=== PATIENT | female | born 1990 | race African-American/Black ===

== ENCOUNTER 2016-11-14 07:28 | Emergency (ER) | payer OTHER ==
[~2016-11-14] VITALS: Ht 157.5 cm; Wt 95.7 kg
[~2016-11-14 07:28] MED LIST: AMLODIPINE10 MG PO; AMOXIL500 MG PO; BENTYL20 MG PO; IBUPROFEN800 MG PO; NORVASC 2.5 MG2.5 MG PO; NORVASC10 M1 PO; PEN-VK500 MG PO; ZOFRAN4 M1 PO
[2016-11-14 07:34] VITALS: BP 195/110
--- NOTE | 2016-11-14 07:55 | ED THROAT/DENTAL COMPLAINT ---
History of Present Illness General Chief Complaint: Sore Throat, Dental Pain Stated Complaint: SORE THROAT X 2 DAYS Source: patient, old records Exam Limitations: no limitations Vital Signs & Intake/Output Vital Signs & Intake/Output Vital Signs Date Time Temp Pulse Resp B/P Pulse O2 O2 Flow FiO2 Ox Delivery Rate 11/14 0734 98.0 113 20 195/110 99 Room Air Allergies Coded Allergies: NO KNOWN ALLERGIES (11/08/15) Reconcile Medications Amlodipine Besylate (Norvasc) 10 MG TABLET 1 TAB PO DAILY APOLLO BLOOD PRESSURE Amoxicillin/Potassium Clav (Augmentin 875-125 Tablet) 875 MG-125 MG TABLET 1 TAB PO BID strep Triage Note: PT TO ED C/O ? STREP X THE PAST 2 DAYS. UNSURE IF FEVERS AT HOME. AFEBRILE. PT WORKS AT A [employer]. Triage Nurses Notes Reviewed? 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 She denies cough shortness of breath she is unsure fever or chills. No abdominal pain nausea vomiting diarrhea. She denies chest pain rashes to her skin near pain congestion she has not taken anything for her symptoms are still until today. (ISAAC EARL) Past History Travel History Traveled to [place] past 21 day No Medical History Any Pertinent Medical History? 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 No (ISAAC EARL) Review of Systems Review of Systems Constitutional: Reports: see HPI. All Other Systems: Reviewed and Negative Comments Review of systems: See HPI, All other systems negative. Constitutional, no chills no fever, no malaise HEENT: No visual changes sore throat no congestion, no ear pain Cardiovascular: No chest pain , no palpitation , no orthopnea no ankle swelling Skin, no rashes, no change in skin Respiratory: No dyspnea no cough no sputum GI: No nausea no vomiting, no diarrhea, no bloating/constipation : No dysuria No hematuria Muscle skeletal: No joint pain, no joint swelling, no back pain, no neck pain, Neurologic: No numbnessno headache Psych: No stress Heme/endocrine: No bruising no bleeding n Immunology: No lymphadenopathy (ISAAC EARL) Physical Exam Physical Exam General Appearance: well developed/nourished, no apparent distress, alert, awake , comfortable Mouth/Throat: normal mouth inspection, tonsillar exudate Comments: Well-developed well-nourished patient in no apparent distress. Head/Face: Atraumatic, no maxillary/frontal sinus tenderness, no facial swelling Eyes: PERRL, EOMI, no conjunctival injection Ear:External auditory canal and Tympanic membranes clear, no erythema, no FB. Nose: atraumatic.Normal inspection: No bleeding, no septal hematoma Throat: Moist mucous membranes. (+) pharyngeal erythema/exudate seen. No stridor /drooling or assymetry. No swelling or edema. No trismus Neck: Supple, no lymphadenopathy, FROM Back: FROM, Nontender Cardiovascular: Regular rate and rhythms no murmurs rubs Respiratory: No respiratory distress. Patient speaking in full complete sentences. Breath sounds clear to auscultation bilaterally: NO W/R/R Extremities: full range of motion Neuro: Alert and oriented x3 Skin: Warm & dry;No appreciable rash on exposed skin Psych: Mood affect normal, normal memory normal judgment. Core Measures ACS in differential dx? No Severe Sepsis Present: No Septic Shock Present: No (ISAAC EARL) Progress Differential Diagnosis: odontogenic abscess, harsha-tonsillar abscess, stomatitis/ gingivitis, strep pharyngitis, MONO VIRAL SYNDROME Plan of Care: Orders Procedure Date/time Status THROAT CULTURE W/QUICK STREP 11/14 0735 Complete DW PT HER STREP SWAB RESULTS NEED FOR abx, SUPPROTIVE CARE, PT CLINICALLY APPEARS WELL NO TRISMUS, SPEAKING IN FULL SENTENCES, ADVISED F/U WITH PMD IF SX PERSIST, D/W PT HER BP IN TRIAG, PT HAS BEEN COMPLIANT WITH NORVASC, ADVISED FLUIDS, RETURN WITH ANY COCNERNS (ISAAC EARL) Departure Departure Time of Disposition: 801 Disposition: HOME OR SELF CARE Condition: Stable Clinical Impression Primary Impression: Strep pharyngitis Secondary Impressions: HTN (hypertension) Referrals: UNKNOWN Additional Instructions: augmentin as directed. tylenol or motrin for pain,fever or chills. drink plenty of fluids. follow up with your pmd, return with any concerns. this was sent to your pharmacy Departure Forms: Customer Survey General Discharge Information Prescriptions: Current Visit Scripts Amoxicillin/Potassium Clav (Augmentin 875-125 Tablet) 1 TAB PO BID #14 TAB (ISAAC EARL) PA/MECHANICAL SERVICE SPECIALIST Co-Sign Statement Statement: ED Attending supervision documentation- [] I saw and evaluated the patient. I have also reviewed all the pertinent lab results and diagnostic results. I agree with the findings and the plan of care as documented in the PA's/MECHANICAL SERVICE SPECIALIST's documentation. [X] I have reviewed the ED Record and agree with the PA's/MECHANICAL SERVICE SPECIALIST's documentation. [] Additions or exceptions (if any) to the PAs/MECHANICAL SERVICE SPECIALIST's note and plan are summarized below: [] (LORI ESCOBAR,GILBERT)
[2016-11-14] MEDS ORDERED: AUGMENTIN 875-1 EACH PO (08:05)
== END 2016-11-14 08:17 ==
LOC: ERH 07:28
DX: J02.0 Streptococcal pharyngitis (principal); I10 Essential (primary) hypertension

== ENCOUNTER 2017-02-05 23:04 | Emergency (ER) | payer OTHER ==
[~2017-02-05] VITALS: Ht 160 cm; Wt 93.4 kg
[~2017-02-05 23:04] MED LIST changes: +AUGMENTIN 875-1 EACH PO
[2017-02-05 23:08] VITALS: BP 155/105
--- NOTE | 2017-02-05 23:50 | ED INFLUENZA/URI COMPLAINT ---
History of Present Illness General Chief Complaint: General Adult Stated Complaint: " I FEEL ACHY AND HEADACHE" Source: patient Exam Limitations: no limitations Vital Signs & Intake/Output Vital Signs & Intake/Output Vital Signs Date Time Temp Pulse Resp B/P Pulse O2 O2 Flow FiO2 Ox Delivery Rate 02/06 0001 Room Air 02/05 2311 101.2 02/05 2308 101.2 115 18 155/105 99 Room Air ED Intake and Output 02/06 0000 02/05 1200 Intake Total Output Total Balance Patient 206 lb Weight Allergies Coded Allergies: NO KNOWN ALLERGIES (11/08/15) Reconcile Medications Amlodipine Besylate (Norvasc) 10 MG TABLET 1 TAB PO DAILY APOLLO BLOOD PRESSURE Amoxicillin/Potassium Clav (Augmentin 875-125 Tablet) 875 MG-125 MG TABLET 1 TAB PO BID strep Benzonatate (Tessalon Perle) 100 MG CAPSULE 1 CAP PO TID PRN COUGH Oseltamivir Phosphate (Tamiflu) 75 MG CAPSULE 1 CAP PO BID INFLUENZA Triage Note: PT TO ED FOR GENERALIZED BODY ACHES, STUFF NOSE "AND FEELING WIERD" SINCE THIS AM. PT REPORTING SHE HAS NOT TAKEN HER BP MEDS "IN A FEW DAYS BECAUSE I HAD MY PERIOD" Triage Nurses Notes Reviewed? yes Onset: Gradual Duration: constant Timing: recent history Severity: moderate Severity Numbers: 5 : No Patient currently breastfeeds: No HPI: Patient is a 26-year-old female with a past medical history of hypertension WHO present emergency room saying that for the past day she's been complaining of chills tactile fevers body aches muscle aches and dry hacking cough and headache and congestion. 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 Patient has been taking Tylenol with minimal relief of symptoms. Denies any shortness of breath chest pain sore throat or ear pain neck pain neck stiffness. Patient is able tolerate by mouth (ISAAC MAS) Past History Travel History Traveled to [place] past 21 day No Medical History Any Pertinent Medical History? 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 No (ISAAC MAS) Review of Systems Review of Systems Constitutional: Reports: see HPI, chills. EENTM: Reports: no symptoms. Respiratory: Reports: see HPI, cough. Cardiovascular: Reports: no symptoms. GI: Reports: no symptoms. Genitourinary: Reports: no symptoms. Musculoskeletal: Reports: see HPI, joint pain, muscle pain. Skin: Reports: no symptoms. Neurological/Psychological: Reports: headache. Hematologic/Endocrine: Reports: no symptoms. Immunologic/Allergic: Reports: no symptoms. All Other Systems: Reviewed and Negative (ISAAC MAS) Physical Exam Physical Exam General Appearance: no apparent distress, alert, comfortable Ears, Nose, Throat: normal ENT inspection, moist mucous membrane, hearing grossly normal, Tympanic normal, pharynx normal Comments: Well-developed well-nourished person in no acute distress HEENT: Normal EENT exam, extraocular motion intact, no nystagmus. Pupils equally round and reactive to light and accommodation. Nose is atraumatic. External auditory canal and Tympanic membranes clear. Pharynx normal. No swelling or edema. Neck: Supple, no lymphadenopathy, normal range of motion without pain or tenderness Back: Nontender, no CVA tenderness. Cardiovascular: Regular rate and rhythms no murmurs rubs or gallops, normal JVP Respiratory: Chest nontender. No respiratory distress.breath sounds clear to auscultation bilaterally Abdomen: Soft, nontender nondistended, no appreciable organomegaly. Normal bowel sounds. No ascites Extremity: No edema, no calf tenderness to palpation, normal and equal pulses. Neuro: Alert oriented x3, motor sensory normal, Skin: No appreciable rash on exposed skin, skin is warm and dry. Psych: Mood and affect is normal, memory and judgment is normal. Core Measures Severe Sepsis Present: No Septic Shock Present: No (ISAAC MAS) Progress Differential Diagnosis: influenza, meningitis, neutropenia, otitis, pneumonia, pharyngitis, sinusitis Plan of Care: Orders Procedure Date/time Status RAPID VIRAL INFLUENZA A 02/05 2311 Complete Microbiology 02/05 2313 NASOPHARYN: Influenza Virus A & B Rapid Smear - COMP INFLUENZA TYPE B patient currently looks well no apparent distress Patient is able tolerate by mouth Nontoxic appearing Clear lungs auscultation patient has positive influenza B (ISAAC MAS) Initial ED EKG: none (ISAAC MAS) Departure Departure Disposition: HOME OR SELF CARE Condition: Stable Clinical Impression Primary Impression: Influenza B Referrals: PATIENT HAS NO PRIMARY CARE DR (PCP/Family) Additional Instructions: As discussed begin drinking plenty of water for hydration, begin over-the- counter ibuprofen for pain and Tylenol for fevers. Begin [id number] guaifenesin and Mucinex for cough. Begin the prescription of Tessalon Perles for cough and a prescription of Tamiflu for your symptoms. Prescription is waiting at [facility] pharmacy. If no better in 3 days follow-up with her primary care doctor. If symptoms worsen return to emergency room Departure Forms: Customer Survey General Discharge Information Prescriptions: Current Visit Scripts Oseltamivir Phosphate (Tamiflu) 1 CAP PO BID #10 CAP Benzonatate (Tessalon Perle) 1 CAP PO TID PRN COUGH #15 CAP (ISAAC MAS) PA/REPORT MANAGER Co-Sign Statement Statement: ED Attending supervision documentation- [] I saw and evaluated the patient. I have also reviewed all the pertinent lab results and diagnostic results. I agree with the findings and the plan of care as documented in the PA's/REPORT MANAGER's documentation. [x] I have reviewed the ED Record and agree with the PA's/REPORT MANAGER's documentation. [] Additions or exceptions (if any) to the PAs/REPORT MANAGER's note and plan are summarized below: [] (AMILCAR ESCOBAR,ERENDIRA Donahue)
[2017-02-05] MEDS ORDERED: TAMIFLU75 M1 PO (23:54)
[2017-02-05] MEDS ORDERED: TESSALON PERLE100 M1 PO (23:54)
== END 2017-02-06 00:03 ==
LOC: ERH 23:04
DX: J10.1 Influenza due to other identified influenza virus with other respiratory manifestations (principal)
CPT/HCPCS: 87804; 87804-59

== ENCOUNTER 2017-11-21 18:46 | Emergency (ER) | payer OTHER ==
[~2017-11-21] VITALS: Ht 160 cm; Wt 79.4 kg
[~2017-11-21 18:46] MED LIST changes: +AMLODIPINE BESY10 M1 PO; +TAMIFLU75 M1 PO; +TESSALON PERLE100 M1 PO
--- NOTE | 2017-11-21 19:20 | ED GENERAL ADULT ---
History of Present Illness General Chief Complaint: Sore Throat, Dental Pain Stated Complaint: TOOTH PAIN X1 DAY Source: patient Exam Limitations: no limitations Vital Signs & Intake/Output Vital Signs & Intake/Output Vital Signs Date Time Temp Pulse Resp B/P B/P Pulse O2 O2 Flow FiO2 Mean Ox Delivery Rate 11/21 2342 8 158/90 11/21 2304 90 15 170/107 11/21 2259 182/114 11/21 2235 182/114 11/21 2215 215/110 11/21 2211 98.8 100 20 215/118 100 11/21 2122 202/118 11/21 2003 210/80 11/21 1942 97.4 86 18 240/138 11/21 1942 97 Room Air 11/21 1905 97.4 86 18 240/138 96 Room Air ED Intake and Output 11/22 0000 11/21 1200 Intake Total Output Total Balance Patient 175 lb Weight Weight Reported by Patient Measurement Method Allergies Coded Allergies: NO KNOWN ALLERGIES (11/08/15) Reconcile Medications Amlodipine Besylate (Norvasc) 10 MG TABLET 1 TAB PO DAILY HYPERTENSION Triage Note: PT FROM HOME C/O DENTAL PAIN X1 DAY PER PT. PT STATES THAT SHE HAS A LEFT UPPER TOOTH IN THE BACK NEAR HER WISDOM TOOTH THAT IS POSSIBLY INFECTED. PT STATES PAIN HAS BEEN X1 DAY AND PT LAST SELF MEDICATED WITH 650MG TYLENOL PO AROUND 1600 FOR THE PAIN. PAIN 8/10 RADIATES FROM LEFT UPPER JAW TO LEFT HOLINESS CAUSING A NARAYANAN. PT ALSO STATES "I RAN OUT OF MY AMLODIPINE 10MG TODAY" PTS MANUAL BP IN TRIAGE 240/138. ASPHALT MIXING MACHINE OPERATOR NICK AND JOVAN GRAY S INFORMED. PT ASYMPTOMATIC. PT A&OX3, AMBULATED TO [facility] FOR EKG. VSS OTHERWISE. Triage Nurses Notes Reviewed? yes Onset: Gradual Duration: getting worse Timing: single episode today Severity: severe Severity Numbers: 7 : No Patient currently breastfeeds: No HPI: Patient is a 27-year-old female with past medical history of hypertension who presents to emergency room with concerns of a 3 month history of a left upper dental tooth ache and fracture where she states that she has been noncompliant with following up with your surgeon to have the tooth pulled her she states that today the pain has worsened and is concerned of gum swelling and infection. Patient also states that she was recently prescribed amlodipine from [place] emergency room for concerns of high blood pressure where she states that she has been compliant with her medications except for today where she ran out of her medications patient does not have a primary care doctor patient has not taken any medications for symptoms. Patient denies any fever or chills blurred vision chest pain shortness breath or CHEST PAIN and difficulty swallowing difficulty breathing (Mc Cardoza) Past History Travel History Traveled to [place] past 21 day No Medical History Any Pertinent Medical History? 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 No (Mc Cardoza) Review of Systems Review of Systems Constitutional: Reports: no symptoms. EENTM: Reports: see HPI, mouth pain, tooth pain. Respiratory: Reports: no symptoms. Cardiovascular: Reports: no symptoms. GI: Reports: no symptoms. Genitourinary: Reports: no symptoms. Musculoskeletal: Reports: no symptoms. Skin: Reports: no symptoms. Neurological/Psychological: Reports: no symptoms. Denies: headache. Hematologic/Endocrine: Reports: no symptoms. Immunologic/Allergic: Reports: no symptoms. All Other Systems: Reviewed and Negative (Mc Cardoza) Physical Exam Physical Exam General Appearance: no apparent distress, alert, comfortable Head: atraumatic Eyes: Bilateral: normal appearance, PERRL, EOMI. 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 No CVA/TIA Diagnosis: No Sepsis Present: No Sepsis Focused Exam Completed? No (Mc Cardoza) Progress Differential Diagnoses I considered the following diagnoses in my evaluation of the patient: [ Hypertensive urgency or hypertensive emergency hypertension, gum abscess, peritonsillar abscess, LUDWIGS angina dental pain] Plan of Care: Orders Procedure Date/time Status Add-on Test (ER Only) 11/21 2253 Active HUMAN BETA HCG SCREEN 11/21 2199 Complete Telemetry/Cane Flume Chute Operator 11/21 2129 Active TROPONIN LEVEL 11/21 2129 Complete COMPREHENSIVE METABOLIC PANEL 11/21 2129 Complete CBC WITHOUT DIFFERENTIAL 11/21 2129 Complete EKG 11/21 1910 Active Laboratory Tests 11/21/172199: Anion Gap 17 H, Estimated GFR > 60, BUN/Creatinine Ratio 12.5, Glucose 106 H, Calcium 9.4, Total Bilirubin 0.3, AST 24, ALT 28, Alkaline Phosphatase 89, Troponin I < 0.01, Total Protein 8.3 H, Albumin 4.7, Globulin 3.6, Albumin/ Globulin Ratio 1.3, Total Beta HCG NEGATIVE, CBC w Diff NO MAN DIFF REQ, RBC 4.82, MCV 79.3 L, MCH 26.1 L, RDW 14.6 H, MPV 7.7, Gran % 74.4, Lymphocytes % 20.7, Monocytes % 4.3, Eosinophils % 0.1, Basophils % 0.5, Absolute Granulocytes 7.0 H, Absolute Lymphocytes 1.9, Absolute Monocytes 0.4, Absolute Eosinophils 0 , Absolute Basophils 0, PUBS MCHC 32.9 L On examination patient was resting currently at bedside patient does have significantly elevated blood pressure patient was administered her amlodipine EKG was unremarkable concerns of peritonsillar abscess or darshan angina I strongly advised patient to follow-up with [facility] practice to establish a primary care doctor for establishment and for prescription medications of amlodipine and strongly advised patient to follow-up and have the oral surgeon PULL patient's tooth Reevaluated patient in which she had improvement of her pain blood pressure still remains high, After amlodipine with minimal response, patient was then administered IV labetalol with mild improvement however after Vasotec patient has significant improvement of blood pressure. Blood work was unremarkable patient again was strongly advised to follow-up with discharge instructions the plan and She will comply Initial ED EK BPM, NOTED T-WAVE INVERSION UNCHANGED ,V2 (Jack ALDANA,Mc) Departure Departure Disposition: HOME OR SELF CARE Condition: Stable Clinical Impression Primary Impression: Toothache Secondary Impressions: Hypertension Referrals: Patient Has No Primary Care Dr (PCP/Family) Additional Instructions: As discussed please follow-up with [facility] practice this week to establish a doctor as you will receive a phone call for an appointment, please follow-up with your oral surgeon to make appointment for further evaluation and treatment of your dental pain, begin the prescription meloxicam for pain, begin the prescription of Percocet for breakthrough pain relief, begin the prescription clindamycin Prescriptions waiting at [facility]. If symptoms worsen or should develop new concerning symptom return to emergency\\ Begin the prescription of amlodipine for your blood pressure Departure Forms: Customer Survey General Discharge Information Prescriptions: Current Visit Scripts Amlodipine Besylate (Norvasc) 1 TAB PO DAILY #30 TAB (Mc Cardoza) PA/IN HOME TUTOR Co-Sign Statement Statement: ED Attending supervision documentation- [] I saw and evaluated the patient. I have also reviewed all the pertinent lab results and diagnostic results. I agree with the findings and the plan of care as documented in the PA's/IN HOME TUTOR's documentation. [x] I have reviewed the ED Record and agree with the PA's/IN HOME TUTOR's documentation. [] Additions or exceptions (if any) to the PAs/IN HOME TUTOR's note and plan are summarized below: [] (Brandi ESCOBAR,Warren Donahue) Critical Care Note Critical Care Note Critical Care Time: non-applicable (Mc Cardoza)
[2017-11-21] MEDS ORDERED: CLEOCIN HCL300 M1 PO (20:24)
[2017-11-21] MEDS ORDERED: NORVASC10 M1 PO (20:24)
[2017-11-21] MEDS ORDERED: MOBIC15 M1 PO (20:24)
[2017-11-21] MEDS ORDERED: PERCOCET 5-3251 EACH PO (20:24)
[2017-11-21 22:17] LABS: ABSOLUTE BASOPHIL COUNT 0 /CUMM (0.0-0.2); ABSOLUTE EOSINOPHIL COUNT 0 /CUMM (0.0-0.7); ABSOLUTE LYMPH COUNT 1.9 /CUMM (1.2-3.4); ABSOLUTE MONOCYTE COUNT 0.4 /CUMM (0.10-0.60); BASOPHIL % 0.5 % (0.0-2.0); EOSINOPHIL % 0.1 % (0-5); HEMATOCRIT 38.2 % (37-47); MEAN CORPUSCULAR HGB 26.1 PG (27.0-31.0); MEAN CORPUSCULAR HGB CONC 32.9 G/DL (33.0-37.0); MEAN CORPUSCULAR VOLUME 79.3 FL (81.0-99.0); MEAN PLATELET VOLUME 7.7 FL (7.4-10.4); PLATELET COUNT 343 /CUMM (130-400); RBC DISTRIBUTION WIDTH 14.6 % (11.5-14.5); RED BLOOD CELL CT 4.82 /CUMM (4.20-5.40); WHITE BLOOD CELL COUNT 9.4 /CUMM (4.8-10.8)
[2017-11-21 22:18] LABS: GRANULOCYTE % 74.4 % (42.2-75.2)
[2017-11-21 23:42] VITALS: BP 158/90
== END 2017-11-21 23:54 ==
LOC: ERH 18:46
PROVIDERS: Physician Assistant
DX: K08.89 Other specified disorders of teeth and supporting structures (principal); I10 Essential (primary) hypertension
CPT/HCPCS: 93005; 93010; 96374; 96375

== ENCOUNTER 2018-06-27 17:56 | Emergency (ER) | payer OTHER ==
[~2018-06-27 17:56] MED LIST changes: +CLEOCIN HCL300 M1 PO; +IBUPROFEN800 M1 PO; +MOBIC15 M1 PO; +PERCOCET 5-3251 EACH PO
[2018-06-27 18:20] VITALS: BP 146/94
--- NOTE | 2018-06-27 18:21 | ED SKIN/ALLERGY COMPLAINT ---
History of Present Illness General Chief Complaint: Animal/Insect Bite Stated Complaint: GOT BIT BY MOSQUITO, ?ALLERGIC REACTION Source: patient Exam Limitations: no limitations Vital Signs & Intake/Output Vital Signs & Intake/Output Vital Signs Date Time Temp Pulse Resp B/P B/P Pulse O2 O2 Flow FiO2 Mean Ox Delivery Rate 06/27 1820 97.6 76 17 146/94 99 Room Air Allergies Coded Allergies: NO KNOWN ALLERGIES (11/08/15) Reconcile Medications Amlodipine Besylate (Norvasc) 10 MG TABLET 1 TAB PO DAILY HYPERTENSION Cephalexin (Keflex) 500 MG CAPSULE 1 CAP PO TID cellulitis Ibuprofen 800 MG TABLET 1 TAB PO TID fever Oseltamivir Phosphate (Tamiflu) 75 MG CAPSULE 1 CAP PO BID flu Triamcinolone Acetonide 0.1 % CREAM..G. 0.1 % TOP BID RASH [place]riage Note: [place], BELIEVES SHE WAS BIT BY MOSQUITOS ON LEFT ARM. STATES REDNESS AND ITCHING TO SITES INCREASED. Triage Nurses Notes Reviewed? yes Onset: Abrupt Duration: day(s): (few) Possible Factors: insect bite : No Patient currently breastfeeds: No HPI: 28-year-old female comes into the emergency room for further evaluation of redness and swelling to right upper arm. Patient reports that she was stung by some insects the other day. She reports that now she has increased redness and swelling and pain. Denies any fever chills or flulike symptoms. She comes in for further evaluation. (Maverick Christian) Past History Travel History Traveled to [place] past 21 day No Medical History Any Pertinent Medical History? see below for history Neurological: NONE EENT: NONE Cardiovascular: hypertension Respiratory: NONE Gastrointestinal: NONE Hepatic: NONE Renal: NONE Musculoskeletal: NONE Psychiatric: NONE Endocrine: NONE Blood Disorders: NONE Cancer(s): NONE LAST TRIMMER/Reproductive: NONE Surgical History Surgical History: non-contributory Psychosocial History What is your primary language Romanian Tobacco Use: Never used Family History Hx Contributory? No (Maverick Christian) Review of Systems Review of Systems Constitutional: Reports: no symptoms. EENTM: Reports: no symptoms. Respiratory: Reports: no symptoms. Cardiovascular: Reports: no symptoms. GI: Reports: no symptoms. Genitourinary: Reports: no symptoms. Musculoskeletal: Reports: no symptoms. Skin: Reports: see HPI. Neurological/Psychological: Reports: no symptoms. Hematologic/Endocrine: Reports: no symptoms. Immunologic/Allergic: Reports: no symptoms. All Other Systems: Reviewed and Negative (Maverick Christian) Physical Exam Physical Exam General Appearance: well developed/nourished, mild distress Head: atraumatic Eyes: Bilateral: normal appearance. Ears, Nose, Throat: normal ENT inspection, hearing grossly normal Neck: normal inspection Respiratory: no respiratory distress Back: normal inspection Extremities: normal inspection, normal range of motion, no edema Neurologic/Psych: awake, alert, oriented x 3, normal mood/affect Skin: intact, rash Skin Problem Location: upper extremities Skin Problem Character: large red patch to right upper arm, well-demarcated borders, first patches 10 x 7 cm, second patch is 10 x 10 cm, warm to touch, (Maverick Christian) Progress Differential Diagnosis: abscess/cellulitis, allergic reaction, anaphylaxis, contact dermatitis Plan of Care: 06/27/2018 9:05:58 PM Patient was double covered with topical steroids in case this is a allergic reaction as well as covered with oral Keflex for cellulitis. At this time appears to be more characteristic of infection. Patient was told to return immediately if any other concerns worsening of symptoms. (Maverick Christian) Departure Departure Disposition: HOME OR SELF CARE Condition: Stable Clinical Impression Primary Impression: Cellulitis of right upper arm Referrals: Katia Garza MD (PCP/Family) Additional Instructions: Use triamcinolone cream as prescribed and take Keflex as prescribed. Take over- the-counter Benadryl at home. Return in 2 days for wound check. Please go over all results of today's visit with your primary care doctor. Contact your primary care doctor to let them know you were here in the emergency room. There may be nonspecific findings which may not be related to your visit today here in the emergency room but may require further evaluation and chronic monitoring by your primary care doctor. If you had a laceration today the chance of foreign body always remains. You should follow-up with your primary care doctor for recheck in 3-5 days for a wound check. If you had an x-ray done there is a chance that a fracture could have been missed on initial read and you should follow-up with your primary care doctor for repeat x-rays if symptoms persist. If your blood pressure was elevated here in the emergency room please have rechecked by our primary care doctor within the next 48. If you were prescribed a narcotic here in the emergency room or any type of controlled substances you're not allowed to drive while taking this medication or operate any type of heavy machinery. Narcotics can make you feel lightheaded dizziness nausea and can cause constipation. You may need to picking table worker a stool softener. Thank you for choosing [facility] emergency room. Please return to the emergency room immediately if you have any other concerns worsening of symptoms. Departure Forms: Customer Survey General Discharge Information Prescriptions: Current Visit Scripts Cephalexin (Keflex) 1 CAP PO TID #21 CAP Triamcinolone Acetonide 0.1 % TOP BID #45 GR (Maverick Christian) PA/MASS SPECTROMETRY MANAGER Co-Sign Statement Statement: ED Attending supervision documentation- [] I saw and evaluated the patient. I have also reviewed all the pertinent lab results and diagnostic results. I agree with the findings and the plan of care as documented in the PA's/MASS SPECTROMETRY MANAGER's documentation. [x] I have reviewed the ED Record and agree with the PA's/MASS SPECTROMETRY MANAGER's documentation. [] Additions or exceptions (if any) to the PAs/MASS SPECTROMETRY MANAGER's note and plan are summarized below: [] (Brandi ESCOBAR,Warren Donahue)
[2018-06-27] MEDS ORDERED: TRIAMCINOLONE A15 G1 TOP (18:24)
[2018-06-27] MEDS ORDERED: KEFLEX500 M1 PO (18:24)
== END 2018-06-27 18:39 ==
LOC: ERH 17:56
DX: L03.113 Cellulitis of right upper limb (principal)